=== PATIENT | male | born 1965 | race Caucasian/White ===

== ENCOUNTER 2020-07-09 20:23 | Inpatient (IN) | payer BC ==
[2020-07-09 21:18] LABS: BLOOD UREA NITROGEN,BUN 14 mg/dL (7.0-18.0); CARBON DIOXIDE,CO2 23.8 mmol/L (21.0-32.0); CHLORIDE,CL 105 mmol/L (98-107); GLUCOSE RANDOM 108 mg/dL (74-106); POTASSIUM,K 3.5 mmol/L (3.5-5.1); SODIUM,NA 141 mmol/L (136-148)
[2020-07-09] MEDS ORDERED: Furosemide 40 MG/4 ML VIAL IVPUSH ONE (21:20)
--- NOTE | 2020-07-09 21:44 | CR ---
Indication: Chest pain Technique: Chest 1 view Comparison: None Findings/Impression: Cardiovascular and mediastinum: Cardiomegaly, partially related to the portable technique. Lungs and pleural space: Bilateral interstitial opacities and patchy left midlung airspace opacities, consistent with pneumonia, including COVID-19. Superimposed pulmonary edema may be present. Small pleural effusions. Correlate clinically. Bones and soft tissues: No significant findings. Dictated by Russel Agee MD @ Jul 09 2020 9:40PM Signed by Dr. Russel Agee @ Jul 09 2020 9:43PM
[2020-07-09] MEDS ORDERED: Aspirin 81 MG Tab.Chew PO ONE (22:06)
[2020-07-10] MEDS ORDERED: guaiFENesin 100 MG/5 ML Soln 10 ML UD Cup PO PRN (00:42)
[2020-07-10] MEDS ORDERED: Levofloxacin/Dextrose 5%-Water 750 MG in Premix Bag 1 BAG IV ONE (00:42)
[2020-07-10] MEDS ORDERED: Albuterol/Ipratropium 3.0-0.5 MG/3 ML Neb Soln NEB PRN (00:42)
[2020-07-10] MEDS: Heparin Sodium 5,000 Units/ML Vial SUBCUT SCH ×2 (01:17→08:59)
--- NOTE | 2020-07-10 05:22 | EDM.PDOC ---
ED HPI GENERAL MEDICAL PROBLEM - General Chief Complaint: Respiratory Problem Stated Complaint: CHEST PAIN /DIFFICULTY BREATHING Time Seen by Provider: 07/09/20 20:34 - History of Present Illness INITIAL COMMENTS - FREE TEXT/NARRATIVE: CHIEF COMPLAINT(S): "I feel like my stomach fluid is going into my lungs." HISTORY OF PRESENT ILLNESS: This is a 54-year-old man with a past medical history of reflux disease who comes to the emergency department with a chief complaint of I feel like my stomach fluid is going into my lungs. The patient states that for the last 9 days he is experiencing what he describes as stomach fluid going into his lungs when he lies down. He states that he feels like the fluid is going into his lungs and he feels like he is short of breath. He states that he has developed a cough with some foam like material. He states that he did drink purple Gatorade and when he laid flat he coughed up purple fluid. He then drink milk and then he coughed up milk colored fluid. He states that it does not feel like his regular reflux disease. He states that he was concerned because of the congestion in his chest so he took amoxicillin from a friend approximately 2 days ago and it felt like it broke loose what was causing the phlegm in his chest. He states he could take a deep breath after that however the shortness of breath has worsened. He states that it is so severe that he gets severely short of breath with walking even short distances. He denies any chest pain, swelling in legs, recent travel, recent surgery, prior history of DVT or PE. He denies any history of CAD or CHF. He states that his abdomen is mildly distended so he took Mucinex but it did not seem to help. He denies any other symptoms such as fever or chills or Covid exposure. He denies any history of COPD or asthma. 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 Otherwise he denies any family history of COPD, asthma or CHF. He denies any IV drug use but states that he does smoke approximately 1 pack of tobacco a day. He denies any alcohol use. REVIEW OF SYSTEMS: Constitutional: Denies fever, chills. Eyes: Denies eye pain Ears, Nose, Mouth, & Throat: Denies earache Cardiovascular: Denies chest pain Respiratory: Positive for shortness of breath Gastrointestinal: Positive for abdominal distention. denies Nausea, vomiting, diarrhea, hematochezia. Genitourinary: Denies hematuria Skin:Denies a rash MSK: Denies joint pain Neurological: Denies blurred vision, numbness, tingling, weakness Psychiatric: Denies depression PAST MEDICAL HISTORY: As per history of present illness and as reviewed below otherwise noncontributory. SURGICAL HISTORY: As per history of present illness and as reviewed below otherwise noncontributory. SOCIAL HISTORY: As per history of present illness and as reviewed below otherwise noncontributory. FAMILY HISTORY: As per history of present illness and as reviewed below otherwise noncontributory. EXAMINATION OF ORGAN SYSTEMS/BODY AREAS: Constitutional: Blood pressure was 133/69, heart rate 95, respiratory rate 30 with an oxygen saturation 95% on room air. Temperature 36.9 General: Middle-aged gentleman who does appear to be in a moderate amount of respiratory distress. Psychiatric: Appropriate mood and affect. Eyes: No scleral icterus or conjunctival erythema ENMT: Moist mucous membranes. No pharyngeal erythema Cardiovascular: Regular, rate, and rhythm. No gallops, murmurs, or rubs. Bilateral upper extremity pulses symmetric and intact. No peripheral edema. No JVD. Respiratory: The patient is speaking in full sentences however does appear to be short of breath. There is no wheezing but there is bilateral crackles noted with diminished breath sounds at the bases. Gastrointestinal: Soft, nontender, diffusely distended. No rebound or guarding normoactive bowel sounds Genitourinary: No suprapubic tenderness Musculoskeletal: Normal range of motion. Skin: No lesions or abrasions. Neurological: Alert, GCS 15 MEDICAL DECISION MAKING AND COURSE IN THE ED WITH INTERPRETATION/REVIEW OF DIAGNOSTIC STUDIES: This is a 54-year-old man and with a past medical history of reflux disease who comes to the emergency department with exertional dyspnea, orthopnea who is tachypneic at baseline when ambulating. The patient is saturating appropriately currently however we will obtain an EKG. An EKG was obtained which did not reveal any acute signs of ischemia however it did reveal a left bundle branch block. Will obtain a cardiac work-up. Differential includes ACS, new onset heart failure, COVID-19, pneumonia. We will provide the patient with aspirin by mouth. Time: 2025 Twelve-lead EKG interpreted by myself. Interpretation: Nondiagnostic study given poor baseline. Will obtain repeat Time: 2045 Twelve-lead EKG interpreted by myself. Normal sinus rhythm at a rate of 97beats per minute. Left axis. IA interval is 174 ms. QRS duration is [address] segments are depressed in leads V4, V5, V6. There are T wave inversions in lead I, aVL, V4 through V6 no Q waves present. LVH is present. There is diffuse left bundle branch block. Interpretation: Sinus rhythm with left bundle branch block with lateral T wave inversions and ST depression no reciprocal changes. Laboratory: CBC reveals a mildly increased white blood cell count at 11.12 with normal indices. Hemoglobin is normal. Coags are within normal limits. CMP reveals hyperglycemia at 108 otherwise unremarkable. Troponin is 0.052 which is negative. BNP is severely elevated at 1349. TSH and T4 are negative. Lipase is normal. Covid is negative. The radiological images were viewed by myself along with reading the report from the radiologist. Chest x-ray reveals bilateral interstitial opacities and patchy left midlung airspace opacities consistent with pneumonia including COVID-19. Superimposed pulmonary edema may be present with small pleural effusions. After initial EKG and laboratory work I did contact Dr. Mccormick at [facility] in [place] to discuss the new onset left bundle branch block. He states that given the duration of symptoms this is unlikely ACS and likely new onset heart failure. He does not recommend transfer at this time. I discussed the results with the patient and discussed with him at this time that I would like to obtain a repeat EKG. I discussed that he is experiencing new onset heart failure and that I would like to admit him to the hospital. He was amenable to this plan. We will provide the patient with 40 mg of IV Lasix. D-dimer was elevated however the patient is low risk for PE and at this time is unable to lie flat secondary to significant fluid overload in the chest. Therefore we will hold off on CT PE. I contacted Dr. Byrd for admission. She accepted the patient for admission. Time: 2204 Twelve-lead EKG interpreted by myself. Normal sinus rhythm at a rate of 95beats per minute. Left axis. IA interval is 165ms. QRS duration is 118ms. ST segments are depressed and leads V4 through V6. There are T wave inversions in leads I, aVL and V4 through V6 there are Q waves in leads III and V2. Hypertrophy is present. No changes demonstrated from prior EKG dated today. There is diffuse left bundle branch block. Interpretation: Sinus rhythm with diffuse left bundle branch block and anterolateral T wave inversions DISPOSITION: The patient was admitted to telemetry in stable condition CONDITION: Serious PROCEDURES: None FINAL IMPRESSION(S)/DIAGNOSES: 1. Acute new onset congestive heart failure Derrell Vásquez M.D. Epigastric Pain Score (Numeric/FACES): 4 - Related Data Allergies Allergy/AdvReac Type Severity Reaction Status Date / Time No Known Allergies Allergy Verified 07/10/20 02:33 Home Meds: Home Meds . [Unable to Verify Home Med List] 07/09/20 [History] Past Medical History Gastrointestinal History: Reports: GERD - Infectious Disease History Infectious Disease History: Reports: Chicken Pox - Past Surgical History Musculoskeletal Surgical History: Reports: Other (See Below) Other Musculoskeletal Surgeries/Procedures:: torn meniscus repair- 8 yrs ago Social & Family History - Family History Cardiac: Reports: [place] - Tobacco Use Tobacco Use Status *Q: Current Every Day Tobacco User Years of Tobacco use: 40 Packs/Tins Daily: 1 Used Tobacco, but Quit: No Second Hand Smoke Exposure: Yes - Caffeine Use Caffeine Use: Reports: Coffee, Soda - Recreational Drug Use Recreational Drug Use: No Recreational Drug Type: Reports: Marijuana/Hashish Recreational Drug Use Frequency: Rarely ED ROS GENERAL - Review of Systems Review Of Systems: See Below ED EXAM, GENERAL - Physical Exam Exam: See Below Course - Vital Signs Last Recorded V/S: Last Vital Signs Temp 36.7 C 07/10/20 04:00 Pulse 82 07/10/20 04:40 Resp 20 07/10/20 04:40 BP 98/56 L 07/10/20 04:40 Pulse Ox 92 L 07/10/20 04:40 - Orders/Labs/Meds Orders: Active Orders 24 hr Category Date Time Status Admission Status [Patient Status] [ADT] Stat ADT 07/09/20 22:41 Active Medication Orders Albuterol/Ipratropium (Duoneb 3.0-0.5 Mg/3 Ml) 3 ml NEB Q6HRRT PRN PRN Reason: Shortness of Breath Furosemide (Lasix) 40 mg IVPUSH Q12H DOM Guaifenesin (Robitussin) 200 mg PO Q6H PRN PRN Reason: Cough Heparin Sodium (Porcine) (Heparin Sodium) 5,000 units SUBCUT Q8H [facility] Last Admin: 07/10/20 01:17 Dose: Not Given Documented by: ASHLEY Labs: Laboratory Tests 07/09/20 07/09/20 07/09/20 Range/Units 20:30 20:30 20:30 WBC 11.12 H (4.0-11.0) K/uL RBC 4.34 L (4.50-5.90) M/uL Hgb 13.6 (13.0-17.0) g/dL Hct 40.9 (38.0-50.0) % MCV 94.2 (80.0-98.0) fL MCH 31.3 (27.0-32.0) pg MCHC 33.3 (31.0-37.0) g/dL RDW Std Deviation 49.5 (28.0-62.0) fl RDW Coeff of Ronnie 14 (11.0-15.0) % Plt Count 258 (150-400) K/uL MPV 10.50 (7.40-12.00) fL Neut % (Auto) 69.2 (48.0-80.0) % Lymph % (Auto) 17.8 (16.0-40.0) % [place] % (Auto) 10.9 (0.0-15.0) % Eos % (Auto) 1.8 (0.0-7.0) % Baso % (Auto) 0.3 (0.0-1.5) % Neut # (Auto) 7.7 H (1.4-5.7) K/uL Lymph # (Auto) 2.0 (0.6-2.4) K/uL [place] # (Auto) 1.2 H (0.0-0.8) K/uL Eos # (Auto) 0.2 (0.0-0.7) K/uL Baso # (Auto) 0.0 (0.0-0.1) K/uL Nucleated RBC % 0.0 /100WBC Nucleated RBCs # 0 K/uL INR 1.10 D-Dimer, Quantitative (0.0-0.50) mg/L FEU Sodium 141 (136-148) mmol/L Potassium 3.5 (3.5-5.1) mmol/L Chloride 105 (98-107) mmol/L Carbon Dioxide 23.8 (21.0-32.0) mmol/L BUN 14 (7.0-18.0) mg/dL Creatinine 1.1 (0.8-1.3) mg/dL Est Cr Clr Drug Dosing 78.35 mL/min Estimated GFR (MDRD) > 60.0 ml/min Glucose 108 H (74-106) mg/dL Calcium 9.1 (8.5-10.1) mg/dL Magnesium 2.0 (1.8-2.4) mg/dL Total Bilirubin 0.8 (0.2-1.0) mg/dL AST 18 (15-37) IU/L ALT 33 (14-63) IU/L Alkaline Phosphatase 74 (46-116) U/L Troponin I 0.052 (0.000-0.056) ng/mL B-Natriuretic Peptide (<100) PG/ML Total Protein 7.5 (6.4-8.2) g/dL Albumin 3.7 (3.4-5.0) g/dL Globulin 3.8 (2.6-4.0) g/dL Albumin/Globulin Ratio 1.0 (0.9-1.6) Lipase (73-393) U/L Free T4 1.22 (0.76-1.46) ng/dL TSH 3rd Generation 1.71 (0.36-3.74) uIU/mL SARS-CoV-2 RNA ([place]) (NEGATIVE) 07/09/20 07/09/20 07/09/20 Range/Units 20:30 20:30 20:30 WBC (4.0-11.0) K/uL RBC (4.50-5.90) M/uL Hgb (13.0-17.0) g/dL Hct (38.0-50.0) % MCV (80.0-98.0) fL MCH (27.0-32.0) pg MCHC (31.0-37.0) g/dL RDW Std Deviation (28.0-62.0) fl RDW Coeff of Ronnie (11.0-15.0) % Plt Count (150-400) K/uL MPV (7.40-12.00) fL Neut % (Auto) (48.0-80.0) % Lymph % (Auto) (16.0-40.0) % [place] % (Auto) (0.0-15.0) % Eos % (Auto) (0.0-7.0) % Baso % (Auto) (0.0-1.5) % Neut # (Auto) (1.4-5.7) K/uL Lymph # (Auto) (0.6-2.4) K/uL [place] # (Auto) (0.0-0.8) K/uL Eos # (Auto) (0.0-0.7) K/uL Baso # (Auto) (0.0-0.1) K/uL Nucleated RBC % /100WBC Nucleated RBCs # K/uL INR D-Dimer, Quantitative 1.01 H (0.0-0.50) mg/L FEU Sodium (136-148) mmol/L Potassium (3.5-5.1) mmol/L Chloride (98-107) mmol/L Carbon Dioxide (21.0-32.0) mmol/L BUN (7.0-18.0) mg/dL Creatinine (0.8-1.3) mg/dL Est Cr Clr Drug Dosing mL/min Estimated GFR (MDRD) ml/min Glucose (74-106) mg/dL Calcium (8.5-10.1) mg/dL Magnesium (1.8-2.4) mg/dL Total Bilirubin (0.2-1.0) mg/dL AST (15-37) IU/L ALT (14-63) IU/L Alkaline Phosphatase (46-116) U/L Troponin I (0.000-0.056) ng/mL B-Natriuretic Peptide 1349 H (<100) PG/ML Total Protein (6.4-8.2) g/dL Albumin (3.4-5.0) g/dL Globulin (2.6-4.0) g/dL Albumin/Globulin Ratio (0.9-1.6) Lipase 125 (73-393) U/L Free T4 (0.76-1.46) ng/dL TSH 3rd Generation (0.36-3.74) uIU/mL SARS-CoV-2 RNA ([place]) (NEGATIVE) 07/09/20 Range/Units 21:36 WBC (4.0-11.0) K/uL RBC (4.50-5.90) M/uL Hgb (13.0-17.0) g/dL Hct (38.0-50.0) % MCV (80.0-98.0) fL MCH (27.0-32.0) pg MCHC (31.0-37.0) g/dL RDW Std Deviation (28.0-62.0) fl RDW Coeff of Ronnie (11.0-15.0) % Plt Count (150-400) K/uL MPV (7.40-12.00) fL Neut % (Auto) (48.0-80.0) % Lymph % (Auto) (16.0-40.0) % [place] % (Auto) (0.0-15.0) % Eos % (Auto) (0.0-7.0) % Baso % (Auto) (0.0-1.5) % Neut # (Auto) (1.4-5.7) K/uL Lymph # (Auto) (0.6-2.4) K/uL [place] # (Auto) (0.0-0.8) K/uL Eos # (Auto) (0.0-0.7) K/uL Baso # (Auto) (0.0-0.1) K/uL Nucleated RBC % /100WBC Nucleated RBCs # K/uL INR D-Dimer, Quantitative (0.0-0.50) mg/L FEU Sodium (136-148) mmol/L Potassium (3.5-5.1) mmol/L Chloride (98-107) mmol/L Carbon Dioxide (21.0-32.0) mmol/L BUN (7.0-18.0) mg/dL Creatinine (0.8-1.3) mg/dL Est Cr Clr Drug Dosing mL/min Estimated GFR (MDRD) ml/min Glucose (74-106) mg/dL Calcium (8.5-10.1) mg/dL Magnesium (1.8-2.4) mg/dL Total Bilirubin (0.2-1.0) mg/dL AST (15-37) IU/L ALT (14-63) IU/L Alkaline Phosphatase (46-116) U/L Troponin I (0.000-0.056) ng/mL B-Natriuretic Peptide (<100) PG/ML Total Protein (6.4-8.2) g/dL Albumin (3.4-5.0) g/dL Globulin (2.6-4.0) g/dL Albumin/Globulin Ratio (0.9-1.6) Lipase (73-393) U/L Free T4 (0.76-1.46) ng/dL TSH 3rd Generation (0.36-3.74) uIU/mL SARS-CoV-2 RNA ([place]) NEGATIVE (NEGATIVE) Meds: Medications Generic Name Dose Route Start Last Admin Trade Name Freq PRN Reason Stop Dose Admin Albuterol/Ipratropium 3 ml 07/10/20 00:42 Duoneb 3.0-0.5 Mg/3 Ml NEB Q6HRRT PRN Shortness of Breath Furosemide 40 mg 07/10/20 06:00 Lasix IVPUSH Q12H DOM Guaifenesin 200 mg 07/10/20 00:42 Robitussin PO Q6H PRN Cough Heparin Sodium (Porcine) 5,000 units 07/10/20 00:45 07/10/20 01:17 Heparin Sodium SUBCUT Not Given Q8H DOM Discontinued Medications Generic Name Dose Route Start Last Admin Trade Name Freq PRN Reason Stop Dose Admin Aspirin 324 mg 07/09/20 22:06 07/09/20 22:14 Aspirin PO 07/09/20 22:07 324 mg ONETIME ONE Administration Furosemide 40 mg 07/09/20 21:20 07/09/20 21:37 Lasix IVPUSH 07/09/20 21:21 40 mg NOW ONE Administration Levofloxacin/Dextrose 750 mg/ 150 mls @ 100 mls/hr 07/10/20 00:42 07/10/20 01:10 Premix IV 07/10/20 02:11 100 mls/hr ONETIME ONE Administration Departure - Departure Time of Disposition: 22:41 Disposition: Admitted As Inpatient 65 Condition: Serious Clinical Impression: Congestive heart failure Qualifiers: Heart failure type: unspecified Heart failure chronicity: acute Qualified Code(s): I50.9 - Heart failure, unspecified - Discharge Information Sepsis Event Note (ED) - Evaluation Sepsis Screening Result: No Definite Risk - Focused Exam Vital Signs: Vital Signs Temp Pulse Resp BP Pulse Ox 07/09/20 20:32 36.9 C 95 30 H 133/69 95 - My Orders Last 24 Hours: My Active Orders 07/09/20 22:41 Admission Status [Patient Status] [ADT] Stat - Assessment/Plan Last 24 Hours: My Active Orders 07/09/20 22:41 Admission Status [Patient Status] [ADT] Stat
[2020-07-10] MEDS ORDERED: Furosemide 40 MG/4 ML VIAL IVPUSH SCH (06:00)
[2020-07-10 06:14] LABS: HEMOGLOBIN A1C 5.4 %
[2020-07-10] MEDS ORDERED: Furosemide 40 MG/4 ML VIAL IVPUSH ONE (06:28)
[2020-07-10] MEDS ORDERED: Acetaminophen 325 MG Tab PO PRN (06:46)
[2020-07-10 06:57] LABS: BLOOD UREA NITROGEN,BUN 13 mg/dL (7.0-18.0); CARBON DIOXIDE,CO2 23.8 mmol/L (21.0-32.0); CHLORIDE,CL 104 mmol/L (98-107); GLUCOSE RANDOM 102 mg/dL (74-106); POTASSIUM,K 3.7 mmol/L (3.5-5.1); SODIUM,NA 140 mmol/L (136-148)
--- NOTE | 2020-07-10 08:03 | PCM.HP.2 ---
H&P History of Present Illness - General Date of Service: 07/10/20 Admit Problem/Dx: Admission Diagnosis/Problem Admission Diagnosis/Problem Congestive heart failure Source of Information: Patient History Limitations: Reports: No Limitations Epigastric Pain Score (Numeric/FACES): 4 - Related Data Allergies/Adverse Reactions: Allergies Allergy/AdvReac Type Severity Reaction Status Date / Time No Known Allergies Allergy Verified 07/10/20 02:33 Home Medications: Home Meds . [Unable to Verify Home Med List] 07/09/20 [History] Past Medical History Gastrointestinal History: Reports: GERD - Infectious Disease History Infectious Disease History: Reports: Chicken Pox - Past Surgical History Musculoskeletal Surgical History: Reports: Other (See Below) Other Musculoskeletal Surgeries/Procedures:: torn meniscus repair- 8 yrs ago Social & Family History - Family History Cardiac: Reports: PA - Tobacco Use Tobacco Use Status *Q: Current Every Day Tobacco User Years of Tobacco use: 40 Packs/Tins Daily: 1 Used Tobacco, but Quit: No Second Hand Smoke Exposure: Yes - Caffeine Use Caffeine Use: Reports: Coffee, Soda - Recreational Drug Use Recreational Drug Use: No Recreational Drug Type: Reports: Marijuana/Hashish Recreational Drug Use Frequency: Rarely Exam - Vital Signs Vital Signs: Last Vital Signs Temp 98.0 F 07/10/20 04:00 Pulse 82 07/10/20 04:40 Resp 20 07/10/20 04:40 BP 98/56 L 07/10/20 04:40 Pulse Ox 92 L 07/10/20 04:40 Weight: 82.463 kg - Patient Data Lab Results Last 24 hrs: Laboratory Results - last 24 hr 07/09/20 07/09/20 07/09/20 Range/Units 20:30 20:30 20:30 WBC 11.12 H (4.0-11.0) K/uL RBC 4.34 L (4.50-5.90) M/uL Hgb 13.6 (13.0-17.0) g/dL Hct 40.9 (38.0-50.0) % MCV 94.2 (80.0-98.0) fL MCH 31.3 (27.0-32.0) pg MCHC 33.3 (31.0-37.0) g/dL RDW Std Deviation 49.5 (28.0-62.0) fl RDW Coeff of Ronnie 14 (11.0-15.0) % Plt Count 258 (150-400) K/uL MPV 10.50 (7.40-12.00) fL Neut % (Auto) 69.2 (48.0-80.0) % Lymph % (Auto) 17.8 (16.0-40.0) % Borden % (Auto) 10.9 (0.0-15.0) % Eos % (Auto) 1.8 (0.0-7.0) % Baso % (Auto) 0.3 (0.0-1.5) % Neut # (Auto) 7.7 H (1.4-5.7) K/uL Lymph # (Auto) 2.0 (0.6-2.4) K/uL Borden # (Auto) 1.2 H (0.0-0.8) K/uL Eos # (Auto) 0.2 (0.0-0.7) K/uL Baso # (Auto) 0.0 (0.0-0.1) K/uL Nucleated RBC % 0.0 /100WBC Nucleated RBCs # 0 K/uL INR 1.10 D-Dimer, Quantitative (0.0-0.50) mg/L FEU Sodium 141 (136-148) mmol/L Potassium 3.5 (3.5-5.1) mmol/L Chloride 105 (98-107) mmol/L Carbon Dioxide 23.8 (21.0-32.0) mmol/L BUN 14 (7.0-18.0) mg/dL Creatinine 1.1 (0.8-1.3) mg/dL Est Cr Clr Drug Dosing 78.35 mL/min Estimated GFR (MDRD) > 60.0 ml/min Glucose 108 H (74-106) mg/dL Hemoglobin A1c (4.5 - 6.2) % Calcium 9.1 (8.5-10.1) mg/dL Phosphorus (2.6-4.7) mg/dL Magnesium 2.0 (1.8-2.4) mg/dL Total Bilirubin 0.8 (0.2-1.0) mg/dL AST 18 (15-37) IU/L ALT 33 (14-63) IU/L Alkaline Phosphatase 74 (46-116) U/L Troponin I 0.052 (0.000-0.056) ng/mL B-Natriuretic Peptide (<100) PG/ML Total Protein 7.5 (6.4-8.2) g/dL Albumin 3.7 (3.4-5.0) g/dL Globulin 3.8 (2.6-4.0) g/dL Albumin/Globulin Ratio 1.0 (0.9-1.6) Triglycerides (0-200) mg/dL Cholesterol (50-200) mg/dL LDL Cholesterol, Calc (60-180) mg/dL VLDL Cholesterol (5-55) mg/dL HDL Cholesterol (40-60) mg/dL Cholesterol/HDL Ratio (3.3-6.0) Lipase (73-393) U/L Free T4 1.22 (0.76-1.46) ng/dL TSH 3rd Generation 1.71 (0.36-3.74) uIU/mL SARS-CoV-2 RNA ([place]) (NEGATIVE) 07/09/20 07/09/20 07/09/20 Range/Units 20:30 20:30 20:30 WBC (4.0-11.0) K/uL RBC (4.50-5.90) M/uL Hgb (13.0-17.0) g/dL Hct (38.0-50.0) % MCV (80.0-98.0) fL MCH (27.0-32.0) pg MCHC (31.0-37.0) g/dL RDW Std Deviation (28.0-62.0) fl RDW Coeff of Ronnie (11.0-15.0) % Plt Count (150-400) K/uL MPV (7.40-12.00) fL Neut % (Auto) (48.0-80.0) % Lymph % (Auto) (16.0-40.0) % Borden % (Auto) (0.0-15.0) % Eos % (Auto) (0.0-7.0) % Baso % (Auto) (0.0-1.5) % Neut # (Auto) (1.4-5.7) K/uL Lymph # (Auto) (0.6-2.4) K/uL Borden # (Auto) (0.0-0.8) K/uL Eos # (Auto) (0.0-0.7) K/uL Baso # (Auto) (0.0-0.1) K/uL Nucleated RBC % /100WBC Nucleated RBCs # K/uL INR D-Dimer, Quantitative 1.01 H (0.0-0.50) mg/L FEU Sodium (136-148) mmol/L Potassium (3.5-5.1) mmol/L Chloride (98-107) mmol/L Carbon Dioxide (21.0-32.0) mmol/L BUN (7.0-18.0) mg/dL Creatinine (0.8-1.3) mg/dL Est Cr Clr Drug Dosing mL/min Estimated GFR (MDRD) ml/min Glucose (74-106) mg/dL Hemoglobin A1c (4.5 - 6.2) % Calcium (8.5-10.1) mg/dL Phosphorus (2.6-4.7) mg/dL Magnesium (1.8-2.4) mg/dL Total Bilirubin (0.2-1.0) mg/dL AST (15-37) IU/L ALT (14-63) IU/L Alkaline Phosphatase (46-116) U/L Troponin I (0.000-0.056) ng/mL B-Natriuretic Peptide 1349 H (<100) PG/ML Total Protein (6.4-8.2) g/dL Albumin (3.4-5.0) g/dL Globulin (2.6-4.0) g/dL Albumin/Globulin Ratio (0.9-1.6) Triglycerides (0-200) mg/dL Cholesterol (50-200) mg/dL LDL Cholesterol, Calc (60-180) mg/dL VLDL Cholesterol (5-55) mg/dL HDL Cholesterol (40-60) mg/dL Cholesterol/HDL Ratio (3.3-6.0) Lipase 125 (73-393) U/L Free T4 (0.76-1.46) ng/dL TSH 3rd Generation (0.36-3.74) uIU/mL SARS-CoV-2 RNA ([place]) (NEGATIVE) 07/09/20 07/10/20 07/10/20 Range/Units 21:36 05:50 05:50 WBC 10.48 (4.0-11.0) K/uL RBC 4.07 L (4.50-5.90) M/uL Hgb 12.4 L (13.0-17.0) g/dL Hct 38.0 (38.0-50.0) % MCV 93.4 (80.0-98.0) fL MCH 30.5 (27.0-32.0) pg MCHC 32.6 (31.0-37.0) g/dL RDW Std Deviation 48.8 (28.0-62.0) fl RDW Coeff of Ronnie 14 (11.0-15.0) % Plt Count 253 (150-400) K/uL MPV 10.80 (7.40-12.00) fL Neut % (Auto) 73.6 (48.0-80.0) % Lymph % (Auto) 12.2 L (16.0-40.0) % Borden % (Auto) 12.4 (0.0-15.0) % Eos % (Auto) 1.6 (0.0-7.0) % Baso % (Auto) 0.2 (0.0-1.5) % Neut # (Auto) 7.7 H (1.4-5.7) K/uL Lymph # (Auto) 1.3 (0.6-2.4) K/uL Borden # (Auto) 1.3 H (0.0-0.8) K/uL Eos # (Auto) 0.2 (0.0-0.7) K/uL Baso # (Auto) 0.0 (0.0-0.1) K/uL Nucleated RBC % 0.0 /100WBC Nucleated RBCs # 0 K/uL INR D-Dimer, Quantitative (0.0-0.50) mg/L FEU Sodium 140 (136-148) mmol/L Potassium 3.7 (3.5-5.1) mmol/L Chloride 104 (98-107) mmol/L Carbon Dioxide 23.8 (21.0-32.0) mmol/L BUN 13 (7.0-18.0) mg/dL Creatinine 1.1 (0.8-1.3) mg/dL Est Cr Clr Drug Dosing 78.35 mL/min Estimated GFR (MDRD) > 60.0 ml/min Glucose 102 (74-106) mg/dL Hemoglobin A1c (4.5 - 6.2) % Calcium 8.8 (8.5-10.1) mg/dL Phosphorus 3.6 (2.6-4.7) mg/dL Magnesium 2.0 (1.8-2.4) mg/dL Total Bilirubin (0.2-1.0) mg/dL AST (15-37) IU/L ALT (14-63) IU/L Alkaline Phosphatase (46-116) U/L Troponin I (0.000-0.056) ng/mL B-Natriuretic Peptide (<100) PG/ML Total Protein (6.4-8.2) g/dL Albumin (3.4-5.0) g/dL Globulin (2.6-4.0) g/dL Albumin/Globulin Ratio (0.9-1.6) Triglycerides 81 (0-200) mg/dL Cholesterol 153 (50-200) mg/dL LDL Cholesterol, Calc 105 (60-180) mg/dL VLDL Cholesterol 16 (5-55) mg/dL HDL Cholesterol 32 L (40-60) mg/dL Cholesterol/HDL Ratio 4.8 (3.3-6.0) Lipase (73-393) U/L Free T4 (0.76-1.46) ng/dL TSH 3rd Generation 1.24 (0.36-3.74) uIU/mL SARS-CoV-2 RNA ([place]) NEGATIVE (NEGATIVE) 07/10/20 07/10/20 Range/Units 05:50 05:50 WBC (4.0-11.0) K/uL RBC (4.50-5.90) M/uL Hgb (13.0-17.0) g/dL Hct (38.0-50.0) % MCV (80.0-98.0) fL MCH (27.0-32.0) pg MCHC (31.0-37.0) g/dL RDW Std Deviation (28.0-62.0) fl RDW Coeff of Ronnie (11.0-15.0) % Plt Count (150-400) K/uL MPV (7.40-12.00) fL Neut % (Auto) (48.0-80.0) % Lymph % (Auto) (16.0-40.0) % Borden % (Auto) (0.0-15.0) % Eos % (Auto) (0.0-7.0) % Baso % (Auto) (0.0-1.5) % Neut # (Auto) (1.4-5.7) K/uL Lymph # (Auto) (0.6-2.4) K/uL Borden # (Auto) (0.0-0.8) K/uL Eos # (Auto) (0.0-0.7) K/uL Baso # (Auto) (0.0-0.1) K/uL Nucleated RBC % /100WBC Nucleated RBCs # K/uL INR D-Dimer, Quantitative (0.0-0.50) mg/L FEU Sodium (136-148) mmol/L Potassium (3.5-5.1) mmol/L Chloride (98-107) mmol/L Carbon Dioxide (21.0-32.0) mmol/L BUN (7.0-18.0) mg/dL Creatinine (0.8-1.3) mg/dL Est Cr Clr Drug Dosing mL/min Estimated GFR (MDRD) ml/min Glucose (74-106) mg/dL Hemoglobin A1c 5.4 (4.5 - 6.2) % Calcium (8.5-10.1) mg/dL Phosphorus (2.6-4.7) mg/dL Magnesium (1.8-2.4) mg/dL Total Bilirubin (0.2-1.0) mg/dL AST (15-37) IU/L ALT (14-63) IU/L Alkaline Phosphatase (46-116) U/L Troponin I 0.067 H* (0.000-0.056) ng/mL B-Natriuretic Peptide (<100) PG/ML Total Protein (6.4-8.2) g/dL Albumin (3.4-5.0) g/dL Globulin (2.6-4.0) g/dL Albumin/Globulin Ratio (0.9-1.6) Triglycerides (0-200) mg/dL Cholesterol (50-200) mg/dL LDL Cholesterol, Calc (60-180) mg/dL VLDL Cholesterol (5-55) mg/dL HDL Cholesterol (40-60) mg/dL Cholesterol/HDL Ratio (3.3-6.0) Lipase (73-393) U/L Free T4 (0.76-1.46) ng/dL TSH 3rd Generation (0.36-3.74) uIU/mL SARS-CoV-2 RNA ([place]) (NEGATIVE) Result Diagrams: 07/10/20 05:50 07/10/20 05:50 Sepsis Event Note - Evaluation Sepsis Screening Result: No Definite Risk - Focused Exam Vital Signs: Vital Signs Temp Pulse Resp BP BP Pulse Ox 07/10/20 04:40 82 20 98/56 L 92 L 07/10/20 04:00 98.0 F 84 18 84/54 L 96 07/10/20 00:00 98.1 F 92 22 H 110/62 93 L 07/09/20 20:32 98.4 F 95 30 H 133/69 95 Orders Last 24hrs: Active Orders 24 hr Category Date Time Status Admission Status [Patient Status] [ADT] Stat ADT 07/09/20 22:41 Active Ambulate [RC] ASDIRECTED Care 07/10/20 06:46 Active Antiembolic Devices [RC] PER UNIT ROUTINE Care 07/10/20 06:47 Active EKG 12 Lead [EKG Documentation Completion] [RC] STAT Care 07/10/20 07:46 Active Height and Weight [RC] DAILY Care 07/10/20 08:01 Ordered Intake and Output Strict [RC] ASDIRECTED Care 07/10/20 08:01 Ordered Oxygen Therapy [RC] ASDIRECTED Care 07/10/20 00:42 Active RT Aerosol Therapy [RC] ASDIRECTED Care 07/10/20 00:45 Active Telemetry Monitoring [Cardiac Monitoring] [RC] Q8H Care 07/10/20 00:53 Active VTE/DVT Education [RC] PER UNIT ROUTINE Care 07/10/20 06:46 Active Vital Signs [RC] Q4H Care 07/10/20 06:46 Active Fluid Restriction [DIET] Diet 07/10/20 Lunch Active Heart Healthy Diet [DIET] Diet 07/10/20 Breakfast Active Echo 2D wo Cont [US] Stat Exams 07/10/20 00:42 Ordered Acetaminophen [TylenoL] Med 07/10/20 06:46 Active 650 mg PO Q4H PRN Albuterol/Ipratropium [DuoNeb 3.0-0.5 MG/3 ML] Med 07/10/20 00:42 Active 3 ml NEB Q6HRRT PRN Furosemide [Lasix] Med 07/10/20 06:00 Active 40 mg IVPUSH Q12H Heparin Sodium Med 07/10/20 00:45 Active 5,000 units SUBCUT Q8H guaiFENesin [Robitussin] Med 07/10/20 00:42 Active 200 mg PO Q6H PRN Sequential Compression Device [OM.PC] Per Unit Routine Oth 07/10/20 06:47 Ordered Medication Orders Acetaminophen (Tylenol) 650 mg PO Q4H PRN PRN Reason: Pain (Mild 1-3)/fever Albuterol/Ipratropium (Duoneb 3.0-0.5 Mg/3 Ml) 3 ml NEB Q6HRRT PRN PRN Reason: Shortness of Breath Last Admin: 07/10/20 06:36 Dose: 3 ml Documented by: ASHLEY Furosemide (Lasix) 40 mg IVPUSH Q12H [facility] Last Admin: 07/10/20 06:28 Dose: Not Given Documented by: ASHLEY Guaifenesin (Robitussin) 200 mg PO Q6H PRN PRN Reason: Cough Heparin Sodium (Porcine) (Heparin Sodium) 5,000 units SUBCUT Q8H DOM Last Admin: 07/10/20 01:17 Dose: Not Given Documented by: ASHLEY
[2020-07-10] MEDS ORDERED: Aspirin 81 MG Tab.Chew PO SCH (09:00)
--- NOTE | 2020-07-10 09:04 | PCM.HP.2 ---
<Norman Jacobs M - Last Filed: 07/10/20 08:58> H&P History of Present Illness - General Date of Service: 07/10/20 Admit Problem/Dx: Admission Diagnosis/Problem Admission Diagnosis/Problem Congestive heart failure Source of Information: Patient History Limitations: Reports: No Limitations - History of Present Illness Initial Comments - Free Text/Narative: 54-year-old male presented complaining of shortness of breath described as "stomach fluid going into my lungs." He has a PMH of GERD. This has been ongoing for approximately 1 week and worsens when lays down. He also reports having a mild cough. Patient has felt shortness of breath on exertion. He denies having any fevers, chills, sore throat, chest pain, nausea, vomiting, abdominal pain, diarrhea, blood in stool, blood in urine, numbness or tingling in extremities. He smokes tobacco 2 ppd, denies alcohol or illicit drug use. No recent history of travel. He reports a family history of CAD. In the ER, EKG showed ST depression in leads V4-V6 and T-wave inversion in lead 1, aVL, V4-V6 as well as LBBB. Troponin was normal. BNP 1349. CXR showed b/l interstitial opacities and patchy left midlung airspace opacities. Superimposed pulmonary edema may be present with small pleural effusion. ER provider contacted Dr. Mccormick at [facility] in [place] who stated given symptom duration unlikely ACD and likely new onset heart failure and transfer not indicated at this time. Patient given aspirin 324 mg and IV lasix 40 mg. Patient admitted for further evaluation and treatment. Epigastric Pain Score (Numeric/FACES): 4 - Related Data Allergies/Adverse Reactions: Allergies Allergy/AdvReac Type Severity Reaction Status Date / Time No Known Allergies Allergy Verified 07/10/20 02:33 Home Medications: Home Meds . [Unable to Verify Home Med List] 07/09/20 [History] Past Medical History Gastrointestinal History: Reports: GERD - Infectious Disease History Infectious Disease History: Reports: Chicken Pox - Past Surgical History Musculoskeletal Surgical History: Reports: Other (See Below) Other Musculoskeletal Surgeries/Procedures:: torn meniscus repair- 8 yrs ago Social & Family History - Family History Cardiac: Reports: [place] - Tobacco Use Tobacco Use Status *Q: Current Every Day Tobacco User Years of Tobacco use: 40 Packs/Tins Daily: 1 Used Tobacco, but Quit: No Second Hand Smoke Exposure: Yes - Caffeine Use Caffeine Use: Reports: Coffee, Soda - Recreational Drug Use Recreational Drug Use: No Recreational Drug Type: Reports: Marijuana/Hashish Recreational Drug Use Frequency: Rarely H&P Review of Systems - Review of Systems: Review Of Systems: See Below Exam - Exam Exam: See Below - Vital Signs Vital Signs: Last Vital Signs Temp 36.8 C 07/10/20 08:00 Pulse 83 07/10/20 08:00 Resp 20 07/10/20 08:00 BP 99/58 L 07/10/20 08:00 Pulse Ox 96 07/10/20 08:00 Weight: 82.463 kg - Exam General: Alert, Oriented, Cooperative HEENT: Conjunctiva Clear, EOMI, Pupils Equal, Pupils Reactive Lungs: Normal Respiratory Effort, Crackles (crackles in lung bases b/l) Cardiovascular: Regular Rate, Regular Rhythm, Systolic Murmur GI/Abdominal Exam: Normal Bowel Sounds, Soft, Non-Tender, Other (Mild distention) Extremities: Normal Inspection, No Pedal Edema Skin: Warm, Dry, Intact Neurological: Cranial Nerves Intact, Strength Equal Bilateral, Normal Speech, Normal Tone Neuro Extensive - Mental Status: Alert, Oriented x3, Normal Mood/Affect Psychiatric: Alert, Normal Affect, Normal Mood - Patient Data Lab Results Last 24 hrs: Laboratory Results - last 24 hr 07/09/20 07/09/20 07/09/20 Range/Units 20:30 20:30 20:30 WBC 11.12 H (4.0-11.0) K/uL RBC 4.34 L (4.50-5.90) M/uL Hgb 13.6 (13.0-17.0) g/dL Hct 40.9 (38.0-50.0) % MCV 94.2 (80.0-98.0) fL MCH 31.3 (27.0-32.0) pg MCHC 33.3 (31.0-37.0) g/dL RDW Std Deviation 49.5 (28.0-62.0) fl RDW Coeff of Ronnie 14 (11.0-15.0) % Plt Count 258 (150-400) K/uL MPV 10.50 (7.40-12.00) fL Neut % (Auto) 69.2 (48.0-80.0) % Lymph % (Auto) 17.8 (16.0-40.0) % Titus % (Auto) 10.9 (0.0-15.0) % Eos % (Auto) 1.8 (0.0-7.0) % Baso % (Auto) 0.3 (0.0-1.5) % Neut # (Auto) 7.7 H (1.4-5.7) K/uL Lymph # (Auto) 2.0 (0.6-2.4) K/uL Titus # (Auto) 1.2 H (0.0-0.8) K/uL Eos # (Auto) 0.2 (0.0-0.7) K/uL Baso # (Auto) 0.0 (0.0-0.1) K/uL Nucleated RBC % 0.0 /100WBC Nucleated RBCs # 0 K/uL INR 1.10 D-Dimer, Quantitative (0.0-0.50) mg/L FEU Sodium 141 (136-148) mmol/L Potassium 3.5 (3.5-5.1) mmol/L Chloride 105 (98-107) mmol/L Carbon Dioxide 23.8 (21.0-32.0) mmol/L BUN 14 (7.0-18.0) mg/dL Creatinine 1.1 (0.8-1.3) mg/dL Est Cr Clr Drug Dosing 78.35 mL/min Estimated GFR (MDRD) > 60.0 ml/min Glucose 108 H (74-106) mg/dL Hemoglobin A1c (4.5 - 6.2) % Calcium 9.1 (8.5-10.1) mg/dL Phosphorus (2.6-4.7) mg/dL Magnesium 2.0 (1.8-2.4) mg/dL Total Bilirubin 0.8 (0.2-1.0) mg/dL AST 18 (15-37) IU/L ALT 33 (14-63) IU/L Alkaline Phosphatase 74 (46-116) U/L Troponin I 0.052 (0.000-0.056) ng/mL B-Natriuretic Peptide (<100) PG/ML Total Protein 7.5 (6.4-8.2) g/dL Albumin 3.7 (3.4-5.0) g/dL Globulin 3.8 (2.6-4.0) g/dL Albumin/Globulin Ratio 1.0 (0.9-1.6) Triglycerides (0-200) mg/dL Cholesterol (50-200) mg/dL LDL Cholesterol, Calc (60-180) mg/dL VLDL Cholesterol (5-55) mg/dL HDL Cholesterol (40-60) mg/dL Cholesterol/HDL Ratio (3.3-6.0) Lipase (73-393) U/L Free T4 1.22 (0.76-1.46) ng/dL TSH 3rd Generation 1.71 (0.36-3.74) uIU/mL SARS-CoV-2 RNA ([place]) (NEGATIVE) 07/09/20 07/09/20 07/09/20 Range/Units 20:30 20:30 20:30 WBC (4.0-11.0) K/uL RBC (4.50-5.90) M/uL Hgb (13.0-17.0) g/dL Hct (38.0-50.0) % MCV (80.0-98.0) fL MCH (27.0-32.0) pg MCHC (31.0-37.0) g/dL RDW Std Deviation (28.0-62.0) fl RDW Coeff of Ronnie (11.0-15.0) % Plt Count (150-400) K/uL MPV (7.40-12.00) fL Neut % (Auto) (48.0-80.0) % Lymph % (Auto) (16.0-40.0) % Titus % (Auto) (0.0-15.0) % Eos % (Auto) (0.0-7.0) % Baso % (Auto) (0.0-1.5) % Neut # (Auto) (1.4-5.7) K/uL Lymph # (Auto) (0.6-2.4) K/uL Titus # (Auto) (0.0-0.8) K/uL Eos # (Auto) (0.0-0.7) K/uL Baso # (Auto) (0.0-0.1) K/uL Nucleated RBC % /100WBC Nucleated RBCs # K/uL INR D-Dimer, Quantitative 1.01 H (0.0-0.50) mg/L FEU Sodium (136-148) mmol/L Potassium (3.5-5.1) mmol/L Chloride (98-107) mmol/L Carbon Dioxide (21.0-32.0) mmol/L BUN (7.0-18.0) mg/dL Creatinine (0.8-1.3) mg/dL Est Cr Clr Drug Dosing mL/min Estimated GFR (MDRD) ml/min Glucose (74-106) mg/dL Hemoglobin A1c (4.5 - 6.2) % Calcium (8.5-10.1) mg/dL Phosphorus (2.6-4.7) mg/dL Magnesium (1.8-2.4) mg/dL Total Bilirubin (0.2-1.0) mg/dL AST (15-37) IU/L ALT (14-63) IU/L Alkaline Phosphatase (46-116) U/L Troponin I (0.000-0.056) ng/mL B-Natriuretic Peptide 1349 H (<100) PG/ML Total Protein (6.4-8.2) g/dL Albumin (3.4-5.0) g/dL Globulin (2.6-4.0) g/dL Albumin/Globulin Ratio (0.9-1.6) Triglycerides (0-200) mg/dL Cholesterol (50-200) mg/dL LDL Cholesterol, Calc (60-180) mg/dL VLDL Cholesterol (5-55) mg/dL HDL Cholesterol (40-60) mg/dL Cholesterol/HDL Ratio (3.3-6.0) Lipase 125 (73-393) U/L Free T4 (0.76-1.46) ng/dL TSH 3rd Generation (0.36-3.74) uIU/mL SARS-CoV-2 RNA ([place]) (NEGATIVE) 07/09/20 07/10/20 07/10/20 Range/Units 21:36 05:50 05:50 WBC 10.48 (4.0-11.0) K/uL RBC 4.07 L (4.50-5.90) M/uL Hgb 12.4 L (13.0-17.0) g/dL Hct 38.0 (38.0-50.0) % MCV 93.4 (80.0-98.0) fL MCH 30.5 (27.0-32.0) pg MCHC 32.6 (31.0-37.0) g/dL RDW Std Deviation 48.8 (28.0-62.0) fl RDW Coeff of Ronnie 14 (11.0-15.0) % Plt Count 253 (150-400) K/uL MPV 10.80 (7.40-12.00) fL Neut % (Auto) 73.6 (48.0-80.0) % Lymph % (Auto) 12.2 L (16.0-40.0) % Titus % (Auto) 12.4 (0.0-15.0) % Eos % (Auto) 1.6 (0.0-7.0) % Baso % (Auto) 0.2 (0.0-1.5) % Neut # (Auto) 7.7 H (1.4-5.7) K/uL Lymph # (Auto) 1.3 (0.6-2.4) K/uL Titus # (Auto) 1.3 H (0.0-0.8) K/uL Eos # (Auto) 0.2 (0.0-0.7) K/uL Baso # (Auto) 0.0 (0.0-0.1) K/uL Nucleated RBC % 0.0 /100WBC Nucleated RBCs # 0 K/uL INR D-Dimer, Quantitative (0.0-0.50) mg/L FEU Sodium 140 (136-148) mmol/L Potassium 3.7 (3.5-5.1) mmol/L Chloride 104 (98-107) mmol/L Carbon Dioxide 23.8 (21.0-32.0) mmol/L BUN 13 (7.0-18.0) mg/dL Creatinine 1.1 (0.8-1.3) mg/dL Est Cr Clr Drug Dosing 78.35 mL/min Estimated GFR (MDRD) > 60.0 ml/min Glucose 102 (74-106) mg/dL Hemoglobin A1c (4.5 - 6.2) % Calcium 8.8 (8.5-10.1) mg/dL Phosphorus 3.6 (2.6-4.7) mg/dL Magnesium 2.0 (1.8-2.4) mg/dL Total Bilirubin (0.2-1.0) mg/dL AST (15-37) IU/L ALT (14-63) IU/L Alkaline Phosphatase (46-116) U/L Troponin I (0.000-0.056) ng/mL B-Natriuretic Peptide (<100) PG/ML Total Protein (6.4-8.2) g/dL Albumin (3.4-5.0) g/dL Globulin (2.6-4.0) g/dL Albumin/Globulin Ratio (0.9-1.6) Triglycerides 81 (0-200) mg/dL Cholesterol 153 (50-200) mg/dL LDL Cholesterol, Calc 105 (60-180) mg/dL VLDL Cholesterol 16 (5-55) mg/dL HDL Cholesterol 32 L (40-60) mg/dL Cholesterol/HDL Ratio 4.8 (3.3-6.0) Lipase (73-393) U/L Free T4 (0.76-1.46) ng/dL TSH 3rd Generation 1.24 (0.36-3.74) uIU/mL SARS-CoV-2 RNA ([place]) NEGATIVE (NEGATIVE) 07/10/20 07/10/20 Range/Units 05:50 05:50 WBC (4.0-11.0) K/uL RBC (4.50-5.90) M/uL Hgb (13.0-17.0) g/dL Hct (38.0-50.0) % MCV (80.0-98.0) fL MCH (27.0-32.0) pg MCHC (31.0-37.0) g/dL RDW Std Deviation (28.0-62.0) fl RDW Coeff of Ronnie (11.0-15.0) % Plt Count (150-400) K/uL MPV (7.40-12.00) fL Neut % (Auto) (48.0-80.0) % Lymph % (Auto) (16.0-40.0) % Titus % (Auto) (0.0-15.0) % Eos % (Auto) (0.0-7.0) % Baso % (Auto) (0.0-1.5) % Neut # (Auto) (1.4-5.7) K/uL Lymph # (Auto) (0.6-2.4) K/uL Titus # (Auto) (0.0-0.8) K/uL Eos # (Auto) (0.0-0.7) K/uL Baso # (Auto) (0.0-0.1) K/uL Nucleated RBC % /100WBC Nucleated RBCs # K/uL INR D-Dimer, Quantitative (0.0-0.50) mg/L FEU Sodium (136-148) mmol/L Potassium (3.5-5.1) mmol/L Chloride (98-107) mmol/L Carbon Dioxide (21.0-32.0) mmol/L BUN (7.0-18.0) mg/dL Creatinine (0.8-1.3) mg/dL Est Cr Clr Drug Dosing mL/min Estimated GFR (MDRD) ml/min Glucose (74-106) mg/dL Hemoglobin A1c 5.4 (4.5 - 6.2) % Calcium (8.5-10.1) mg/dL Phosphorus (2.6-4.7) mg/dL Magnesium (1.8-2.4) mg/dL Total Bilirubin (0.2-1.0) mg/dL AST (15-37) IU/L ALT (14-63) IU/L Alkaline Phosphatase (46-116) U/L Troponin I 0.067 H* (0.000-0.056) ng/mL B-Natriuretic Peptide (<100) PG/ML Total Protein (6.4-8.2) g/dL Albumin (3.4-5.0) g/dL Globulin (2.6-4.0) g/dL Albumin/Globulin Ratio (0.9-1.6) Triglycerides (0-200) mg/dL Cholesterol (50-200) mg/dL LDL Cholesterol, Calc (60-180) mg/dL VLDL Cholesterol (5-55) mg/dL HDL Cholesterol (40-60) mg/dL Cholesterol/HDL Ratio (3.3-6.0) Lipase (73-393) U/L Free T4 (0.76-1.46) ng/dL TSH 3rd Generation (0.36-3.74) uIU/mL SARS-CoV-2 RNA ([place]) (NEGATIVE) Result Diagrams: 07/10/20 05:50 07/10/20 05:50 Sepsis Event Note - Evaluation Sepsis Screening Result: No Definite Risk - Focused Exam Vital Signs: Vital Signs Temp Pulse Resp BP Pulse Ox 07/10/20 08:00 36.8 C 83 20 99/58 L 96 07/10/20 04:40 82 20 98/56 L 92 L 07/10/20 04:00 36.7 C 84 18 84/54 L 96 07/10/20 00:00 36.7 C 92 22 H 110/62 93 L - Problem List (1) Elevated troponin SNOMED Code(s): 517422750, 926411851, 164294108 ICD Code: R77.8 - OTHER SPECIFIED ABNORMALITIES OF PLASMA PROTEINS Status: Acute (2) Congestive heart failure SNOMED Code(s): 94818873 ICD Code: I50.9 - HEART FAILURE, UNSPECIFIED Status: Acute Qualifiers: Heart failure type: unspecified Heart failure chronicity: acute Qualified Code(s): I50.9 - Heart failure, unspecified Problem List Initiated/Reviewed/Updated: Yes Orders Last 24hrs: Active Orders 24 hr Category Date Time Status Admission Status [Patient Status] [ADT] Stat ADT 07/09/20 22:41 Active Ambulate [RC] ASDIRECTED Care 07/10/20 06:46 Active Antiembolic Devices [RC] PER UNIT ROUTINE Care 07/10/20 06:47 Active EKG 12 Lead [EKG Documentation Completion] [RC] STAT Care 07/10/20 07:46 Active Height and Weight [RC] DAILY Care 07/10/20 08:01 Active Intake and Output Strict [RC] ASDIRECTED Care 07/10/20 08:01 Active Oxygen Therapy [RC] ASDIRECTED Care 07/10/20 00:42 Active RT Aerosol Therapy [RC] ASDIRECTED Care 07/10/20 00:45 Active Telemetry Monitoring [Cardiac Monitoring] [RC] Q8H Care 07/10/20 00:53 Active VTE/DVT Education [RC] PER UNIT ROUTINE Care 07/10/20 06:46 Active Vital Signs [RC] Q4H Care 07/10/20 06:46 Active Fluid Restriction [DIET] Diet 07/10/20 Lunch Active Heart Healthy Diet [DIET] Diet 07/10/20 Breakfast Active Echo Comp wo Cont [US] Stat Exams 07/10/20 00:42 Ordered Acetaminophen [TylenoL] Med 07/10/20 06:46 Active 650 mg PO Q4H PRN Albuterol/Ipratropium [DuoNeb 3.0-0.5 MG/3 ML] Med 07/10/20 00:42 Active 3 ml NEB Q6HRRT PRN Aspirin Med 07/10/20 09:00 Active 81 mg PO DAILY Furosemide [Lasix] Med 07/10/20 06:00 Active 40 mg IVPUSH Q12H Heparin Sodium Med 07/10/20 00:45 Active 5,000 units SUBCUT Q8H guaiFENesin [Robitussin] Med 07/10/20 00:42 Active 200 mg PO Q6H PRN Sequential Compression Device [OM.PC] Per Unit Routine Oth 07/10/20 06:47 Ordered Medication Orders Acetaminophen (Tylenol) 650 mg PO Q4H PRN PRN Reason: Pain (Mild 1-3)/fever Albuterol/Ipratropium (Duoneb 3.0-0.5 Mg/3 Ml) 3 ml NEB Q6HRRT PRN PRN Reason: Shortness of Breath Last Admin: 07/10/20 06:36 Dose: 3 ml Documented by: ASHLEY Aspirin (Aspirin) 81 mg PO DAILY [facility] Furosemide (Lasix) 40 mg IVPUSH Q12H [facility] Last Admin: 07/10/20 06:28 Dose: Not Given Documented by: ASHLEY Guaifenesin (Robitussin) 200 mg PO Q6H PRN PRN Reason: Cough Heparin Sodium (Porcine) (Heparin Sodium) 5,000 units SUBCUT Q8H [facility] Last Admin: 07/10/20 01:17 Dose: Not Given Documented by: ASHLEY Assessment/Plan Comment:: Assessment and Plan: 1. New-onset CHF: - Patient admitted to med/surg. Patient started telemetry, IV lasix 40 mg BID, daily standing weights, fluid restriction and salt restriction. He was given aspirin 324 mg qd in the ER yesterday night. This morning, troponin recheck was elevated at 0.067. Repeat EKG was done which showed changes from admission EKG including mild ST elevation in lead V3. Considering elevated troponin in the setting of new-onset CHF, EKG changes, shortness of breath and low blood pressure (99/58 mm Hg) patient will require transfer to facility with higher level of care for further evaluation and treatment. ER provider Dr. Gonzales at [facility] in [place], [place] was contacted who agreed to accept patient for tra nsfer and recommended not starting heparin drip at this time since patient is not having chest pain currently. Patient transferred in stable condition via flight. <Jair Byrd - Last Filed: 07/10/20 22:33> H&P History of Present Illness - General Admit Problem/Dx: Admission Diagnosis/Problem Admission Diagnosis/Problem Congestive heart failure Exam - Vital Signs Vital Signs: Last Vital Signs Temp 36.8 C 07/10/20 08:00 Pulse 83 07/10/20 08:00 Resp 20 07/10/20 08:00 BP 99/58 L 07/10/20 08:00 Pulse Ox 96 07/10/20 08:00 - Patient Data Lab Results Last 24 hrs: Laboratory Results - last 24 hr 07/09/20 07/10/20 07/10/20 Range/Units 21:36 05:50 05:50 WBC 10.48 (4.0-11.0) K/uL RBC 4.07 L (4.50-5.90) M/uL Hgb 12.4 L (13.0-17.0) g/dL Hct 38.0 (38.0-50.0) % MCV 93.4 (80.0-98.0) fL MCH 30.5 (27.0-32.0) pg MCHC 32.6 (31.0-37.0) g/dL RDW Std Deviation 48.8 (28.0-62.0) fl RDW Coeff of Ronnie 14 (11.0-15.0) % Plt Count 253 (150-400) K/uL MPV 10.80 (7.40-12.00) fL Neut % (Auto) 73.6 (48.0-80.0) % Lymph % (Auto) 12.2 L (16.0-40.0) % Titus % (Auto) 12.4 (0.0-15.0) % Eos % (Auto) 1.6 (0.0-7.0) % Baso % (Auto) 0.2 (0.0-1.5) % Neut # (Auto) 7.7 H (1.4-5.7) K/uL Lymph # (Auto) 1.3 (0.6-2.4) K/uL Titus # (Auto) 1.3 H (0.0-0.8) K/uL Eos # (Auto) 0.2 (0.0-0.7) K/uL Baso # (Auto) 0.0 (0.0-0.1) K/uL Nucleated RBC % 0.0 /100WBC Nucleated RBCs # 0 K/uL Sodium 140 (136-148) mmol/L Potassium 3.7 (3.5-5.1) mmol/L Chloride 104 (98-107) mmol/L Carbon Dioxide 23.8 (21.0-32.0) mmol/L BUN 13 (7.0-18.0) mg/dL Creatinine 1.1 (0.8-1.3) mg/dL Est Cr Clr Drug Dosing 78.35 mL/min Estimated GFR (MDRD) > 60.0 ml/min Glucose 102 (74-106) mg/dL Hemoglobin A1c (4.5 - 6.2) % Calcium 8.8 (8.5-10.1) mg/dL Phosphorus 3.6 (2.6-4.7) mg/dL Magnesium 2.0 (1.8-2.4) mg/dL Troponin I (0.000-0.056) ng/mL Triglycerides 81 (0-200) mg/dL Cholesterol 153 (50-200) mg/dL LDL Cholesterol, Calc 105 (60-180) mg/dL VLDL Cholesterol 16 (5-55) mg/dL HDL Cholesterol 32 L (40-60) mg/dL Cholesterol/HDL Ratio 4.8 (3.3-6.0) TSH 3rd Generation 1.24 (0.36-3.74) uIU/mL SARS-CoV-2 RNA ([place]) NEGATIVE (NEGATIVE) 07/10/20 07/10/20 Range/Units 05:50 05:50 WBC (4.0-11.0) K/uL RBC (4.50-5.90) M/uL Hgb (13.0-17.0) g/dL Hct (38.0-50.0) % MCV (80.0-98.0) fL MCH (27.0-32.0) pg MCHC (31.0-37.0) g/dL RDW Std Deviation (28.0-62.0) fl RDW Coeff of Ronnie (11.0-15.0) % Plt Count (150-400) K/uL MPV (7.40-12.00) fL Neut % (Auto) (48.0-80.0) % Lymph % (Auto) (16.0-40.0) % Titus % (Auto) (0.0-15.0) % Eos % (Auto) (0.0-7.0) % Baso % (Auto) (0.0-1.5) % Neut # (Auto) (1.4-5.7) K/uL Lymph # (Auto) (0.6-2.4) K/uL Titus # (Auto) (0.0-0.8) K/uL Eos # (Auto) (0.0-0.7) K/uL Baso # (Auto) (0.0-0.1) K/uL Nucleated RBC % /100WBC Nucleated RBCs # K/uL Sodium (136-148) mmol/L Potassium (3.5-5.1) mmol/L Chloride (98-107) mmol/L Carbon Dioxide (21.0-32.0) mmol/L BUN (7.0-18.0) mg/dL Creatinine (0.8-1.3) mg/dL Est Cr Clr Drug Dosing mL/min Estimated GFR (MDRD) ml/min Glucose (74-106) mg/dL Hemoglobin A1c 5.4 (4.5 - 6.2) % Calcium (8.5-10.1) mg/dL Phosphorus (2.6-4.7) mg/dL Magnesium (1.8-2.4) mg/dL Troponin I 0.067 H* (0.000-0.056) ng/mL Triglycerides (0-200) mg/dL Cholesterol (50-200) mg/dL LDL Cholesterol, Calc (60-180) mg/dL VLDL Cholesterol (5-55) mg/dL HDL Cholesterol (40-60) mg/dL Cholesterol/HDL Ratio (3.3-6.0) TSH 3rd Generation (0.36-3.74) uIU/mL SARS-CoV-2 RNA ([place]) (NEGATIVE) Result Diagrams: 07/10/20 05:50 07/10/20 05:50 Orders Last 24hrs: Active Orders 24 hr Category Date Time Status Admission Status [Patient Status] [ADT] Stat ADT 07/09/20 22:41 Active Sequential Compression Device [OM.PC] Per Unit Routine Oth 07/10/20 06:47 Ordered Assessment/Plan Comment:: I performed a history and physical exam of the patient and discussed management with resident. I have reviewed the residents note and agree with documented findings and plan unless otherwise specified in my note.
== END 2020-07-10 10:18 | DRG 194 ==
LOC: MW.ED 20:23 → MW.MS 22:49
PROVIDERS: ADMIT Student in an Organized Health Care Education/Training Program; ATTEND Student in an Organized Health Care Education/Training Program
DX: I50.9 Heart failure, unspecified (principal); K21.9 Gastro-esophageal reflux disease without esophagitis; Z82.49 Family history of ischemic heart disease and other diseases of the circulatory system; F17.210 Nicotine dependence, cigarettes, uncomplicated
CPT/HCPCS: 36415; 71045; 71045-26; 80048; 80053; 80061; 83036; 83690; 83735; 83880; 84100; 84439; 84443; 84484; 85025; 85379; 85610; 93005; 93010; 96374; 99222; 99285; 99285-25; A9270-GY; J1940; J1956; J7620-GY; U0002

== ENCOUNTER 2022-02-25 18:43 | Emergency (ER) | payer BC ==
[2022-02-25] MEDS ORDERED: Iopamidol 755 Mg/ML 100 ML Bottle IV ONE (21:30)
[2022-03-25 16:16] LABS: BLOOD UREA NITROGEN,BUN 15 mg/dL (7.0-18.0); CARBON DIOXIDE,CO2 24.9 mmol/L (21.0-32.0); CHLORIDE,CL 101 mmol/L (98-107); GLUCOSE RANDOM 153 mg/dL (74-106); POTASSIUM,K 3.8 mmol/L (3.5-5.1); SODIUM,NA 137 mmol/L (136-148)
[2022-03-25 16:17] LABS: ESTIMATED GFR 78 mL/min (>60)
== END 2022-02-25 22:00 ==
LOC: MW.ED 18:43
DX: I63.412 Cerebral infarction due to embolism of left middle cerebral artery (principal); Z20.822 Contact with and (suspected) exposure to COVID-19
CPT/HCPCS: 36415; 37195; 70450; 70496; 70498; 80053; 82550; 84443; 84484; 85025; 85610; 85730; 86850; 86900; 86901; 87635; 99291; Q9967; U0002

== ENCOUNTER 2022-07-15 10:30 | Emergency (ER) | payer BC ==
[2022-07-15] MEDS ORDERED: Sodium Chloride 0.9% 1,000 ML IV ONE (11:06)
[2022-07-15] MEDS ORDERED: Morphine 4 MG/ML Syringe IVPUSH ONE (11:06)
[2022-07-15] MEDS ORDERED: Ondansetron 4 MG/2 ML SDV IVPUSH ONE (11:06)
[2022-07-15 11:55] LABS: CARBON DIOXIDE,CO2 24.1 mmol/L (21.0-32.0); POTASSIUM,K 3.5 mmol/L (3.5-5.1)
[2022-07-15] MEDS ORDERED: Iopamidol 755 MG/ML 500 ML Multipack Bottle IVPUSH ONE (12:15)
== END 2022-07-15 13:50 | disposition home or self-care (01) ==
LOC: MW.ED 10:30
DX: T81.31XA Disruption of external operation (surgical) wound, not elsewhere classified, initial encounter (principal); I25.10 Atherosclerotic heart disease of native coronary artery without angina pectoris; K21.9 Gastro-esophageal reflux disease without esophagitis; Z88.8 Allergy status to other drugs, medicaments and biological substances; Z95.1 Presence of aortocoronary bypass graft; Z79.01 Long term (current) use of anticoagulants; Z79.899 Other long term (current) drug therapy; Z87.891 Personal history of nicotine dependence
CPT/HCPCS: 36415; 74177; 74177-26; 80053; 83605; 85025; 87070; 87077; 87186; 87205; 96361; 96374; 96375; 99284; 99284-25; J2270; J2405; J7030; Q9967

== ENCOUNTER 2022-07-29 16:19 | Emergency (ER) | payer BC ==
[2022-07-29] MEDS ORDERED: Lactated Ringers 1,000 ML IV ONE (18:20)
[2022-07-29 18:23] LABS: CARBON DIOXIDE,CO2 23.7 mmol/L (21.0-32.0); POTASSIUM,K 3.8 mmol/L (3.5-5.1)
[2022-07-29] MEDS ORDERED: Acetaminophen 500 MG Tab PO STA (20:04)
[2022-07-29] MEDS ORDERED: Morphine 4 MG/ML Syringe IVPUSH STA (20:05)
[2022-07-29] MEDS ORDERED: Cefepime 2 GM in Sodium Chloride 0.9% 50 ML IV STA (20:34)
[2022-07-29] MEDS ORDERED: Piperacillin/Tazobactam 3.375 GM in Sodium Chloride 0.9% 50 ML IV STA (20:40)
[2022-07-29] MEDS ORDERED: VANCOmycin 1.75 GM/350 ML 350 ML IV ONE (21:15)
== END 2022-07-30 00:16 | disposition home or self-care (01) ==
LOC: MW.ED 16:19
DX: R18.8 Other ascites (principal); D72.829 Elevated white blood cell count, unspecified; K21.9 Gastro-esophageal reflux disease without esophagitis; Z90.49 Acquired absence of other specified parts of digestive tract; Z88.8 Allergy status to other drugs, medicaments and biological substances; Z79.01 Long term (current) use of anticoagulants; Z79.82 Long term (current) use of aspirin; Z79.899 Other long term (current) drug therapy
CPT/HCPCS: 36415; 74177; 80053; 81003; 83605; 83690; 85025; 85610; 96361; 96365; 96366; 96367; 96375; 99284; A9270; J2270; J2543; J3370; J7050; J7120

== ENCOUNTER 2025-02-05 10:23 | Emergency (ER) | payer BC | END 2025-02-05 10:56 | disposition home or self-care (01) | LOC: MW.ED 10:23 | DX: B02.9 Zoster without complications (principal); K21.9 Gastro-esophageal reflux disease without esophagitis; Z79.899 Other long term (current) drug therapy; Z79.01 Long term (current) use of anticoagulants; Z79.82 Long term (current) use of aspirin; Z88.8 Allergy status to other drugs, medicaments and biological substances | CPT/HCPCS: 99282; 99283 ==